=== PATIENT | female | born 1970 | race Caucasian/White ===

== ENCOUNTER 2017-05-31 19:19 | Emergency (ER) | payer BC ==
[2017-05-31 19:26] VITALS: BP 144/84; PULSE 100; TEMP 98; BMI 39.4
--- NOTE | 2017-05-31 19:27 | PDOC ---
History of Present Illness - General History Source: Patient Exam Limitations: No Limitations - History of Present Illness Initial Comments: 05/31/17 19:43 The patient is a 47 year old female, with a significant past medical history of diabetes, who presents to the emergency department sent by PCP for evaluation of elevated blood sugar. The patient reports a history of gestational diabetes in the past, but states she had been off treatment for a while, which prompted her to visit her PCP on 05/11/17. At the time, patient had bloodwork and urine done, which revealed elevated glucose. Patient states she went back to her PCP on 05/25/17 for follow-up bloodwork and urine. Today, patient reports receiving a call from her PCP, who reported her labs were notable for elevated glucose and ketones, so he recommended she come to the ER for hydration. Patient denies any chest pain, shortness of breath, diaphoresis, or palpitations. She denies any recent body aches, fever, chills, cough, headache, dizziness, or lightheadedness. She denies any abdominal pain, nausea, vomiting, diarrhea, or constipation. She reports increased urinary frequency, but denies any dysuria or hematuria. Patient states she was started on Medication 1 week ago, and has since lost 7 pounds. Allergies: NKDA Past Surgical History: None reported. Social History: Non smoker. No ETOH or recreational drug use. PCP: Dr. Seth <Kiah Lezama - Last Filed: 05/31/17 19:49> <Mervat Estevez - Last Filed: 06/01/17 03:59> - General Chief Complaint: Blood Sugar Problem Stated Complaint: HIGH SUGAR Time Seen by Provider: 05/31/17 19:26 Past History <Kiah Lezama - Last Filed: 05/31/17 19:49> - Past Medical History COPD: No - Suicide/Smoking/Psychosocial Hx Smoking History: Unknown if ever smoked Have you smoked in the past 12 months: No Number of Cigarettes Smoked Daily: 0 Information on smoking cessation initiated: No Hx Alcohol Use: No Drug/Substance Use Hx: No Substance Use Type: None <Mervat Estevez - Last Filed: 06/01/17 03:59> - Past Medical History Allergies/Adverse Reactions: Allergies Allergy/AdvReac Type Severity Reaction Status Date / Time No Known Allergies Allergy Unverified 05/31/17 19:28 Home Medications: Ambulatory Orders Canagliflozin/Metformin HCl [Invokamet 50-1,000 mg Tablet] 1 each PO BID Review of Systems - Review of Systems Able to Perform ROS?: Yes Comments:: 05/31/17 19:43 CONSTITUTIONAL: Absent: fever, no chills, no fatigue EYES: Absent: visual changes ENT: Absent: ear pain, no sore throat CARDIOVASCULAR: Absent: chest pain, no palpitations RESPIRATORY: Absent: cough, no SOB GI: Absent: abdominal pain, no nausea, no vomiting, no constipation, no diarrhea GENITOURINARY: Present: urinary frequency Absent: dysuria, no hematuria MUSKULOSKELETAL: Absent: back pain, no arthralgia, no myalgia ENDOCRINE: Present: Elevated blood sugar, recent weight loss Absent: No cold intolerance, changes in appetite SKIN: Absent: rash NEURO: Absent: headache <Lezama,Giomilsy - Last Filed: 05/31/17 19:49> *Physical Exam - Vital Signs Last Vital Signs Temp Pulse Resp BP Pulse Ox 98 F 100 H 13 144/84 100 05/31/17 19:20 05/31/17 19:20 05/31/17 19:20 05/31/17 19:20 05/31/17 19:20 - Physical Exam Comments: 05/31/17 19:46 GENERAL: The patient is awake, alert, and fully oriented, in no acute distress. Tearful on exam. HEAD: Normal with no signs of trauma. EYES: Pupils equal, round and reactive to light, extraocular movements intact, sclera anicteric, conjunctiva clear with no pallor. ENT: Ears normal, nares patent, oropharynx clear without exudates. Moist mucous membranes. NECK: Normal range of motion, supple without lymphadenopathy, JVD, or masses. LUNGS: Breath sounds equal, clear to auscultation bilaterally. No wheeze/ crackles. HEART: Regular rate and rhythm, normal S1 and S2 without murmur or rub. ABDOMEN: Soft/nontender/nondistended. BS wnl. No guarding or rebound. No palpable masses. No hepatosplenomegaly. EXTREMITIES: Normal range of motion, no edema. No clubbing or cyanosis. No cords, erythema, or tenderness. NEUROLOGICAL: Cranial nerves II through XII grossly intact. Normal speech, normal gait. PSYCH: Normal mood, normal affect. SKIN: Warm, Dry, normal turgor, no rashes or lesions noted. <Kiah Lezama - Last Filed: 05/31/17 19:49> - Vital Signs Last Vital Signs Temp Pulse Resp BP Pulse Ox 98 F 100 H 13 144/84 100 05/31/17 19:20 05/31/17 19:20 05/31/17 19:20 05/31/17 19:20 05/31/17 19:20 <Mervat Estevez - Last Filed: 06/01/17 03:59> ED Treatment Course - LABORATORY CBC & Chemistry Diagram: 05/31/17 20:03 05/31/17 20:03 <Mervat Estevez - Last Filed: 06/01/17 03:59> Medical Decision Making - Medical Decision Making Documentation has been prepared under my direction and personally reviewed by me in its entirety. I attest that this documented accurately reflects all work, treatment, procedures and medical decision making performed by me. As noted above, this 47-year-old woman with newly diagnosed diabetes mellitus was told to come to the emergency room by her physician for hydration. The patient had been started on medication (invokamet) and been told to drink large amounts of water when she saw her physician last week. When results of laboratory evaluation drawn 2 days ago were received by her physician, she was told to come here. She denies any new complaints. Exam as noted Patient was given a liter normal saline IV Laboratory evaluation revealed normal CBC; serum acetone and urine ketones were trace. Chemistry profile revealed normal electrolytes and no evidence of anion gap. Carbon dioxide was 24 Postprandial (patient had dinner prior to coming to the emergency room) glucose was 200. No evidence of significant ketoacidosis Since the patient had no nausea or vomiting and was able to hydrate herself by mouth, patient can be discharged home with follow-up with Dr. Seth tomorrow. She should return to the emergency room if she has increasing weakness, lightheadedness or experiences nausea/vomiting <Mervat Estevez - Last Filed: 06/01/17 03:59> *DC/Admit/Observation/Transfer - Attestations Scribe Attestion: 05/31/17 19:46 Documentation prepared by Giomilsy Lezama, acting as medical secretary for Mervat Estevez MD. <Kiah Lezama - Last Filed: 05/31/17 19:49> <Mervat Estevez - Last Filed: 06/01/17 03:59> Diagnosis at time of Disposition: Diabetes mellitus Qualifiers: Diabetes mellitus type: type 2 Diabetes mellitus custodial insulin use: without custodial use Diabetes mellitus complication status: without complication Qualified Code(s): E11.9 - Type 2 diabetes mellitus without complications - Discharge Dispostion Disposition: HOME Condition at time of disposition: Stable - Referrals Referrals: Amarjit Seth MD [Primary Care Provider] - Call tomorrow - Patient Instructions Printed Discharge Instructions: DI for Diabetes Type 2 Additional Instructions: Continue medication as prescribed Continue drinking plenty of water Maintain dietary changes as previously Call tomorrow to arrange follow-up Return to ER if you have severe weakness or nausea/vomiting - Post Discharge Activity
[2017-05-31] MEDS ORDERED: SODIUM CHLORIDE 1,000 ML IV STA (19:48)
[2017-05-31 20:16] LABS: URINE APPEARANCE Clear; URINE BILIRUBIN Negative (NEGATIVE); URINE BLOOD Negative (NEGATIVE); URINE GLUCOSE (UA) 2+ (NEGATIVE); URINE KETONE Trace (NEGATIVE); URINE LEUK ESTERASE TRACE (NEGATIVE); URINE NITRITE Negative (NEGATIVE); URINE PROTEIN Negative (NEGATIVE); URINE UROBILINOGEN 0.2 (0.2-1.0)
[2017-05-31 20:21] LABS: BASO % 0.6 % (0-2.0); HEMATOCRIT 44.3 % (32.4-45.2); HEMOGLOBIN 15.1 GM/dl (10.7-15.3); MCH 28.2 pg (25.7-33.7); MCHC 34.1 g/dl (32.0-36.0); MEAN CELL VOLUME 82.7 fl (80-96); MEAN PLT VOLUME 8.1 fl (7.5-11.1); NEUT % 39.4 % (42.8-82.8); PLATELET COUNT 283 K/MM3 (134-434); RBC 5.35 M/mm3 (3.60-5.2); RDW 11.4 % (11.6-15.6); WHITE BLOOD COUNT 8.1 K/mm3 (4.0-10.8)
[2017-05-31 20:28] LABS: INR 1.03 (0.82-1.09); PROTHROMBIN TIME (PATIENT) 11.5 SEC (10.2-13.0)
[2017-05-31 20:33] LABS: ALK PHOS 86 U/L (32-92); ANION GAP 7 (8-16); BLOOD UREA NITROGEN 23 mg/dl (7-18); CALCIUM 9.9 mg/dl (8.4-10.2); CHLORIDE 100 mmol/L (98-107); CO2 24 mmol/L (22-28); GLUCOSE,RANDOM 200 mg/dl (74-106); POTASSIUM 3.7 mmol/L (3.5-5.1); SGOT/AST 28 U/L (10-42); SGPT/ALT 29 U/L (10-40); SODIUM 131 mmol/L (136-145); TOT PROT 7.4 g/dl (6.4-8.3)
[2017-05-31 20:44] LABS: BILIRUBIN,TOTAL 0.5 mg/dl (0.2-1.0)
[2017-05-31 20:46] LABS: CREATININE < 0.8 mg/dl (0.6-1.3)
[2017-05-31 22:47] LABS: URINE COLOR YELLOW; URINE RBC 0-2 /hpf (0-3)
[2017-05-31 22:48] LABS: EPI CELLS FEW /HPF; URINE BACTERIA FEW /hpf (NEGATIVE)
== END 2017-05-31 22:47 | disposition home or self-care (01) ==
LOC: FER 19:19
PROC: 3E0337Z Introduction of Electrolytic and Water Balance Substance into Peripheral Vein, Percutaneous Approach (ICD-10-PCS; principal; 2017-05-31)
DX: E11.9 Type 2 diabetes mellitus without complications (principal)
CPT/HCPCS: 36415; 80053; 81003; 81015; 82009; 85025; 85610; 99283-25; J7030